=== PATIENT | male | born 1940 | race Hispanic/Latino ===

== ENCOUNTER 2019-03-08 12:04 | Emergency (ER) | payer MEDICARE ==
[2019-03-08] MEDS ORDERED: HYDROmorphone 1 MG/1 ML INJ IV ONE (12:28)
[2019-03-08] MEDS ORDERED: ONDANSETRON 4 MG/2 ML INJ IV ONE (12:28)
--- NOTE | 2019-03-08 12:31 | Event Note ---
ED Screening Note Date of service: 03/08/19 Time: 12:15 ED Screening Note: This initial assessment/diagnostic orders/clinical plan/treatment(s) is/are subject to change based on patients health status, clinical progression and re- assessment by fellow clinical providers in the ED. Further treatment and workup at subsequent clinical providers discretion. Patient/guardian urged not to elope from the ED as their condition may be serious if not clinically assessed and managed. Initial orders include: Left shoulder X-ray CT head
--- NOTE | 2019-03-08 12:33 | Emergency Department Report ---
HPI - HPI HPI: Room 19 The patient is a 79-year-old male presenting with a chief complaint of left shoulder pain after fall. The patient states today he tripped and fell forward for striking his left shoulder on the ground and striking his face small stature. Patient denies loss of consciousness but complains of severe pain to the left shoulder. Patient gets his pain a score of 10/10. The patient states he is up-to-date with his tetanus vaccinations Location: [See above] Duration: [See above] Quality: [See above] Severity: [See above] Timing: [See above] Context: [See above] Modifying factors: [See above] Associated signs and symptoms: [see above] <CAMELIA RIVERA - Last Filed: 03/08/19 15:05> <DEMI NAZARIO - Last Filed: 03/08/19 15:57> - General Chief Complaint: Fall Time Seen by Provider: 03/08/19 12:14 ED Past Medical Hx - Past Medical History Previous Medical History?: Yes Hx Hypertension: Yes Hx Diabetes: Yes Hx Arthritis: Yes - Surgical History Hx Coronary Stent: Yes (x 3) Additional Surgical History: Left knee replacement, - Family History Family history: no significant - Social History Smoking Status: Never Smoker Substance Use Type: None <CAMELIA RIVERA K - Last Filed: 03/08/19 15:05> <DEMI NAZARIO - Last Filed: 03/08/19 15:57> - Medications Home Medications: Home Medications Medication Instructions Recorded Confirmed Last Taken Type HYDROcodone/APAP 5-325 [[place] 1 - 2 each PO Q6HR PRN #20 tablet 03/08/19 Unknown Rx 5/325] Ibuprofen [Motrin 800 MG tab] 800 mg PO Q8HR PRN #20 tablet 03/08/19 Unknown Rx cephALEXin [Keflex] 500 mg PO Q12HR #14 cap 03/08/19 Unknown Rx ED Review of Systems ROS: Stated complaint: FALL INJURY/LT SHOULDER/HEAD INJURY Other details as noted in HPI Constitutional: no symptoms reported Eyes: denies: eye pain ENT: denies: throat pain Respiratory: no symptoms reported Cardiovascular: denies: chest pain Endocrine: no symptoms reported Gastrointestinal: denies: abdominal pain Genitourinary: denies: dysuria Musculoskeletal: arthralgia, myalgia Neurological: denies: headache <KIM RIVERAMOKE K - Last Filed: 03/08/19 15:05> ROS: Stated complaint: FALL INJURY/LT SHOULDER/HEAD INJURY Other details as noted in HPI Comment: All other systems reviewed and negative <DEMI NAZARIO A - Last Filed: 03/08/19 15:57> Physical Exam - Physical Exam Vital Signs: Vital Signs 03/08/19 12:12 Temperature 97.6 F Pulse Rate 70 Respiratory 16 Rate Blood Pressure 184/116 O2 Sat by Pulse 100 Oximetry Physical Exam: GENERAL: The patient is well-developed well-nourished male lying on stretcher appearing to be in mild discomfort. [] HEENT: Normocephalic. Irregularly-shaped laceration to the left face and left upper eyelid- Does not violate eyelid margin. Extraocular motions are intact. Patient has moist mucous membranes. NECK: Supple. No axial step offs CHEST/LUNGS: There is no respiratory distress noted. HEART/CARDIOVASCULAR: Regular. There is no tachycardia. There is no gallop rub or murmur. 2+ left radial pulse ABDOMEN: Abdomen is soft, nontender. Patient has normal bowel sounds. There is no abdominal distention. SKIN: There is no rash. There is no edema. There is no diaphoresis. NEURO: The patient is awake, alert, and oriented. The patient is cooperative. The patient has normal speech and gait. Normal sensation to light touch of the left hand patient able to make a fist with the left hand MUSCULOSKELETAL: There is pain in the left shoulder. There is no evidence of acute injury. <LOISAxelCAMELIA K - Last Filed: 03/08/19 15:05> - Physical Exam Vital Signs: Vital Signs 03/08/19 03/08/19 12:12 14:57 Temperature 97.6 F Temperature [ 99.1 F Pre-Procedure] Pulse Rate 70 Pulse Rate [Pre 77 -Procedure] Respiratory 16 Rate Respiratory 15 Rate [Pre- Procedure] Blood Pressure 184/116 Blood Pressure 182/79 [Pre-Procedure] O2 Sat by Pulse 100 Oximetry O2 Sat by Pulse 98 Oximetry [Pre- Procedure] <DEMI NAZARIO A - Last Filed: 03/08/19 15:57> ED Course Vital Signs 03/08/19 12:12 Temperature 97.6 F Pulse Rate 70 Respiratory 16 Rate Blood Pressure 184/116 O2 Sat by Pulse 100 Oximetry <CAMELIA RIVERA K - Last Filed: 03/08/19 15:05> Vital Signs 03/08/19 03/08/19 12:12 14:57 Temperature 97.6 F Temperature [ 99.1 F Pre-Procedure] Pulse Rate 70 Pulse Rate [Pre 77 -Procedure] Respiratory 16 Rate Respiratory 15 Rate [Pre- Procedure] Blood Pressure 184/116 Blood Pressure 182/79 [Pre-Procedure] O2 Sat by Pulse 100 Oximetry O2 Sat by Pulse 98 Oximetry [Pre- Procedure] <DEMI NAZARIO A - Last Filed: 03/08/19 15:57> - Moderate Sedation Indications: fracture/dislocation redu ASA Class: II Mallampati Airway Score: 3 Time of Last PO Intake: 23:00 Preparation: maintenance equipment operator applied, pulse oximeter, suction/airway equipment at bedside, IV secured IV Etomidate Dose (mgs): 12 Complications: none Patient Tolerated Procedure: well - Orthopedic Joint Reduction Joint #1 Consent Obtained: verbal consent Time Out Performed: Yes Side: left Joint Reduction Location: shoulder Analgesia: moderate sedation Amount of Anesthetic Used (mls): 12 (mg) Shoulder Technique Used (if applicable): traction/counter-traction Technique Used: traction/counter-traction Post-Reduction Neuro Exam: intact Post-Reduction Vascular Exam: intact Post Reduction X-Ray Obtained: Yes Post Reduction X-Ray Results: reduced Splint Applied: Yes Patient Tolerated Procedure: well <CAMELIA RIVERA K - Last Filed: 03/08/19 15:05> - Laceration /Wound Repair nose Wound Location: face Wound Length (cm): 3 Wound's Depth, Shape: irregular, flap, stellate, contused tissue Wound Explored: clean Irrigated w/ Saline (ccs): 50 Betadine Prep?: Yes Anesthesia: 1% Lidocaine Volume Anesthetic (ccs): 1 Wound Debrided: minimal Wound Repaired With: sutures Suture Size/Type: 3:0 Number of Sutures: 4 Layer Closure?: No Sterile Dressing Applied?: Yes <DEMI NAZARIO A - Last Filed: 03/08/19 15:57> ED Medical Decision Making - Radiology Data Radiology results: report reviewed (CT head, CT cervical spine, CT facial bones, left shoulder x-ray), image reviewed (left shoulder x-ray, CT head, CT cervical spine, CT facial bones) interpreted by me: Shoulder [id number] dislocation left shoulder [address] [address] XRay Report Signed Patient: WILL WORRELL MR#: [id number] 3 : 1940 Acct:[id number] Age/Sex: 79 / M ADM Date: 03/08/19 Loc: ED Attending Dr: Order ing Physician: FABIOLA VEE Date of Service: 03/08/19 Procedure(s): XR shoulder 2+V LT Accession Number(s): [id number] cc: FABIOLA VEE Fluoro Time In Minutes: The left shoulder 3 views INDICATION: Left shoulder pain following fall IMPRESSION: There is evidence of fracture dislocation of the left glenohumeral joint with anterior inferior subluxation of the shoulder. There ap pears to be a displaced osseous fragment lateral to the glenoid. Signer Name: Jenaro Ruiz MD Signed: 03/08/2019 1:00 PM Workstation Name: [id number] Transcribed By: BC Dictated By: Jenaro Ruiz MD Electronically Authenticated By: Jenaro Ruiz MD Signed Date/Time: 03/08/19 1300 DD/ 1259 TD/TT: [address] [address] Cat Scan Report Signed Patient: WILL WORRELL MR#: [id number] 3 : 1940 Acct:[id number] Age/Sex: 79 / M ADM Date: 03/08/19 Loc: ED Attending Dr: Ordering Physician: CAMELIA RIVERA MD Date of Service: 03/08/19 Procedure(s): CT facial bones wo con Accession Number(s): [id number] cc: CAMELIA RIVERA MD CT head without contrast CT facial bones without contrast HISTORY: head injury after fall. TECHNIQUE: Axial imaging performed from the skull apex through the skull base without the use of contrast. All CT scans at this location are performed using CT dose reduction for ALARA by means of automated exposure control. COMPARISON: None FINDINGS: Parenchyma: No acute intracranial hemorrhage or parenchymal abnormality. Ventricles: There is mild diffuse brain atrophy with commensurate ventricular enlargement which is likely age appropriate. Bones and soft tissues: There are comminuted nasal bone fractures bilaterally with overlying soft tissue swelling. No other fracture or soft tissue abnormality identified. Orbits are normal. Sinuses: Sinuses and mastoid air cells are clear. IMPRESSION: 1. Comminuted nasal bone fractures, with mild overlying soft tissue swelling. 2. No acute intracranial abnormality. Signer Name: Austin Mata MD Signed: 03/08/2019 1:10 PM Workstation Name: [id number] Transcribed By: JW Dictated By: Austin Mata MD Electronically Authenticated By: Austin Mata MD Signed Date/Time: 03/08/19 1310 DD/ 1306 TD/TT: [facility] [address] [place] [address] Cat Scan Report Signed Patient: WILL WORRELL MR#: [id number] 3 : 1940 Acct:[id number] Age/Sex: 79 / M ADM Date: 03/08/19 Loc: ED Attending Dr: Ordering Physician: CAMELIA RIVERA MD Date of Service: 03/08/19 Procedure(s): CT cervical spine wo con Accession Number(s): [id number] cc: CAMELIA RIVERA MD Exam: CT cervical spine History: head injury after fall; Technique: Contiguous thin cut axial images obtained through the cervical spine. Sagittal and coronal reconstructions performed by the technologist. All CT scans at this location are performed using CT dose reduction for ALARA by means of automated exposure control. Findings: No priors. There is no evidence of fracture or traumatic subluxation. Vertebral bodies are normal in height and alignment. Vertebral compression fractures; normal prevertebral space; no fracture involving the bony canal in the transverse images Disc heights are relatively well preserved. At C3-C4 disc level, left neural foramen is narrowed due to facet joint hypertrophic changes. At C4-C5 disc level, marked facet joint hypertrophic changes are seen bilaterally. At C5-C6 disc level, minimal spondylolisthesis seen. Moderate facet joint hypertrophic changes are seen bilaterally more on the left side. Shallow disc protrusion is seen towards the left side. Left neural foramen is narrowed. C6-C7 and C7-T1 disc spaces are normal. Facet joints are an kylosed at C2-C3, C3-C4 and C4-C5 disc levels bilaterally. Calcification is seen in the left carotid bifurcation. Impression: No signs of acute bony trauma to the cervical spine. Signer Name: Venu Norman MD Signed: 03/08/2019 1:40 PM Workstation Name: [id number] Transcribed By: BISHOP Dictated By: Venu Figueroa MD Electronically Authenticated By: Venu Figueroa MD Signed Date/Time: 03/08/19 1340 DD/ 1335 TD/TT: [facility] [address] [place] [address] Cat Scan Report Signed Patient: WILL WORRELL MR#: [id number] 3 : 1940 Acct:[id number] Age/Sex: 79 / M ADM Date: 03/08/19 Loc: ED Attending Dr: Ordering Physician: FABIOLA VEE Date of Service: 03/08/19 Procedu re(s): CT head/brain wo con Accession Number(s): [id number] cc: FABIOLA VEE CT head without contrast CT facial bones without contrast HISTORY: head injury after fall. TECHNIQUE: Axial imaging performed from the skull apex through the skull base without the use of contrast. All CT scans at this location are performed using CT dose reduction for ALARA by means of automated exposure control. COMPARISON: None FINDINGS: Parenchyma: No acute intracranial hemorrhage or parenchymal abnormality. Ventricles: There is mild diffuse brain atrophy with commensurate ventricular enlargement which is likely age appropriate. Bones and soft tissues: There are comminuted nasal bone fractures bilaterally with overlying soft tissue swelling. No other fracture or soft tissue abnormality identified. Orbits are normal. Sinuses: Sinuses and mastoid air cells are clear. IMPRESSION: 1. Comminuted nasal bone fractures, with mild overlying soft tissue swelling. 2. No acute intracranial abnormality. Signer Name: Austin Mata MD Signed: 03/08/2019 1:10 PM Workstation Name: [id number] Transcribed By: JW Dictated By: Austin Mata MD Electronically Authenticated By: Austin Mata MD Signed Date/Time: 03/08/19 1310 DD/ 1306 TD/TT: - Differential Diagnosis wrist fracture, facial laceration, closed head injury, ICH, <CAMELIA RIVERA - Last Filed: 03/08/19 15:05> - Medical Decision Making Vital Signs 03/08/19 03/08/19 03/08/19 12:12 14:57 15:45 Temperature 97.6 F 98.2 F Temperature [ 99.1 F Pre-Procedure] Pulse Rate 70 73 Pulse Rate [Pre 77 -Procedure] Respiratory 16 15 Rate Respiratory 15 Rate [Pre- Procedure] Blood Pressure 184/116 Blood Pressure 182/79 [Pre-Procedure] Blood Pressure 181/75 [Right] O2 Sat by Pulse 100 100 Oximetry O2 Sat by Pulse 98 Oximetry [Pre- Procedure] xrays noted shoulder reduced lac repaired pt and family educated on post dc wound care I've asked them to return here in am for follow up with me given the proximity to the eye. verbalizes understanding <DEMI NAZARIO A - Last Filed: 03/08/19 15:57> Critical care attestation.: If time is entered above; I have spent that time in minutes in the direct care of this critically ill patient, excluding procedure time. <CAMELIA RIVERA - Last Filed: 03/08/19 15:05> Critical care attestation.: If time is entered above; I have spent that time in minutes in the direct care of this critically ill patient, excluding procedure time. <DEMI NAZARIO A - Last Filed: 03/08/19 15:57> ED Disposition Is pt being admited?: No Does the pt Need Aspirin: No <CAMELIA RIVERA - Last Filed: 03/08/19 15:05> Is pt being admited?: No Does the pt Need Aspirin: No Time of Disposition: 15:57 <DEMI NAZARIO A - Last Filed: 03/08/19 15:57> Clinical Impression: Facial laceration, Fracture dislocation of left shoulder joint Disposition: DC-01 TO HOME OR SELFCARE Condition: Stable Instructions: Suture Care (ED), Shoulder Dislocation (ED), Laceration (ED) Additional Instructions: Return to the emergency department should you develop worsening symptoms, inability to tolerate food or liquids, high fever or any other concerns ICE SLEEP SITTING UP ARM SLING EYE PATCH TO STAY THIS EVENING MOTRIN OR TYLENOL FOR PAIN AVOID NARCOTICS IF POSSIBLE MEDS ORDERED FOLLOW UP WITH DR HALE MONITOR [employer]AR Prescriptions: cephALEXin [Keflex] 500 mg PO Q12HR #14 cap Ibuprofen [Motrin 800 MG tab] 800 mg PO Q8HR PRN #20 tablet PRN Reason: Pain, Moderate (4-6) HYDROcodone/APAP 5-325 [[place] 5/325] 1 - 2 each PO Q6HR PRN #20 tablet PRN Reason: Pain Referrals: KINGS HALE MD [Staff Physician] - [facility] (Dr. Hale is an orthopedic surgeon. Please follow-up with him for further evaluation)
[2019-03-08] MEDS ORDERED: SODIUM CHLORIDE IRRI 500 ML 500 ML IR ONE (12:43)
--- NOTE | 2019-03-08 13:04 | XRay Report ---
The left shoulder 3 views INDICATION: Left shoulder pain following fall IMPRESSION: There is evidence of fracture dislocation of the left glenohumeral joint with anterior in ferior subluxation of the shoulder. There appears to be a displaced osseous fragment lateral to the g lenoid. Signer Name: Jenaro Ruiz MD Signed: 03/08/2019 1:00 PM Workstation Name: [id number]
--- NOTE | 2019-03-08 13:14 | Cat Scan Report ---
CT head without contrast CT facial bones without contrast HISTORY: head injury after fall. TECHNIQUE: Axial imaging performed from the skull apex through the skull base without the use of con trast. All CT scans at this location are performed using CT dose reduction for ALARA by means of aut omated exposure control. COMPARISON: None FINDINGS: Parenchyma: No acute intracranial hemorrhage or parenchymal abnormality. Ventricles: There is mild diffuse brain atrophy with commensurate ventricular enlargement which is l ikely age appropriate. Bones and soft tissues: There are comminuted nasal bone fractures bilaterally with overlying soft ti ssue swelling. No other fracture or soft tissue abnormality identified. Orbits are normal. Sinuses: Sinuses and mastoid air cells are clear. IMPRESSION: 1. Comminuted nasal bone fractures, with mild overlying soft tissue swelling. 2. No acute intracranial abnormality. Signer Name: Austin Mata MD Signed: 03/08/2019 1:10 PM Workstation Name: [id number]
--- NOTE | 2019-03-08 13:45 | Cat Scan Report ---
Exam: CT cervical spine History: head injury after fall; Technique: Contiguous thin cut axial images obtained through the cervical spine. Sagittal and gale l reconstructions performed by the technologist. All CT scans at this location are performed using CT dose reduction for ALARA by means of automated exposure control. Findings: No priors. There is no evidence of fracture or traumatic subluxation. Vertebral bodies are normal in height and alignment. Vertebral compression fractures; normal preverte bral space; no fracture involving the bony canal in the transverse images Disc heights are relatively well preserved. At C3-C4 disc level, left neural foramen is narrowed due to facet joint hypertrophic changes. At C4-C5 disc level, marked facet joint hypertrophic changes are seen bilaterally. At C5-C6 disc level, minimal spondylolisthesis seen. Moderate facet joint hypertrophic changes are se en bilaterally more on the left side. Shallow disc protrusion is seen towards the left side. Left urban ral foramen is narrowed. C6-C7 and C7-T1 disc spaces are normal. Facet joints are ankylosed at C2-C3, C3-C4 and C4-C5 disc levels bilaterally. Calcification is seen in the left carotid bifurcation. Impression: No signs of acute bony trauma to the cervical spine. Signer Name: Venu Norman MD Signed: 03/08/2019 1:40 PM Workstation Name: [email or web address]
[2019-03-08] MEDS ORDERED: ETOMIDATE 20 MG/10 ML INJ IV ONE ×2 (14:57→15:15)
[2019-03-08 15:55] VITALS: BP 181/75
--- NOTE | 2019-03-08 16:27 | XRay Report ---
Single frontal view of the left shoulder INDICATION: post reduction. COMPARISON: Earlier today IMPRESSION: Interval relocation with Hill-Sachs fracture again noted. There is a small sheared frag ment laterally. Signer Name: Austin Mata MD Signed: 03/08/2019 4:23 PM Workstation Name: [id number]
== END 2019-03-08 16:48 | disposition home or self-care (01) ==
LOC: ED 12:04
DX: S01.21XA Laceration without foreign body of nose, initial encounter (principal); S42.92XA Fracture of left shoulder girdle, part unspecified, initial encounter for closed fracture; I10 Essential (primary) hypertension; E11.9 Type 2 diabetes mellitus without complications; M19.90 Unspecified osteoarthritis, unspecified site; Z98.890 Other specified postprocedural states; Z79.1 Long term (current) use of non-steroidal anti-inflammatories (NSAID); Z79.899 Other long term (current) drug therapy; W19.XXXA Unspecified fall, initial encounter; Y93.89 Activity, other specified; Y92.89 Other specified places as the place of occurrence of the external cause; Y99.8 Other external cause status
CPT/HCPCS: 12013; 24505; 70450; 70486; 72125; 73020; 73030; 96374; 96375; 99284; J1170; J2405

== ENCOUNTER 2019-03-09 12:21 | Emergency (ER) | payer MEDICARE ==
--- NOTE | 2019-03-09 12:24 | Emergency Department Report ---
Stated Complaint: FOLLOW UP FOR EYELID Time Seen by Provider: 03/09/19 12:23 - HPI History of Present Illness: HERE YESTERDAY SP HAD SHOULDER REDUCTION AND LAC TO NASAL BRIDGE AND EYE REPAIRED - ROS Review of Systems: NO NEW COMPLAINTS - Exam Physical Exam: MILD BRUISING UNDER LEFT EYE SUTURE INTACT NO DRAINAGE OF EYE CANTHUS INTACT MSE screening note: Focused history and physical exam performed. Due to findings the following was ordered: NO ACUTE LIFE THREAT DC HOME WILL FOLLOW UP NEXT TO HAVE SUTURES REMOVED FAMILY AND PT UNDERSTAND PLAN OF CARE. HE IS TAKING ANTIBIOTIC AND WILL FOLLOW UP WITH DR TOPETE Patient discussed with doctor:: CAMELIA RIVERA ED Disposition for MSE Condition: Stable
[2019-03-09 12:33] VITALS: BP 146/71
== END 2019-03-09 12:24 | disposition left against medical advice (07) ==
LOC: ED 12:21
DX: Z01.00 Encounter for examination of eyes and vision without abnormal findings (principal); Z53.21 Procedure and treatment not carried out due to patient leaving prior to being seen by health care provider

== ENCOUNTER 2019-03-17 14:40 | Emergency (ER) | payer MEDICARE ==
[2019-03-17 16:09] VITALS: BP 145/63
--- NOTE | 2019-03-17 16:15 | Emergency Department Report ---
Suture/Staple Removal - HPI Chief Complaint: Laceration/Recheck/Suture Stated Complaint: SUTURE REMOVAL Time Seen by Provider: 03/17/19 16:15 When Sutures or Krysta Placed: 03/08/19 Wound Location: left nasal region and left upper eyelid ED Review of Systems ROS: Stated complaint: SUTURE REMOVAL Other details as noted in HPI Comment: All other systems reviewed and negative ED Past Medical Hx - Past Medical History Hx Hypertension: Yes Hx Diabetes: Yes Hx Arthritis: Yes - Surgical History Hx Coronary Stent: Yes (x 3) Additional Surgical History: Left knee replacement, - Social History Smoking Status: Former Smoker Substance Use Type: Alcohol - Medications Home Medications: Home Medications Medication Instructions Recorded Confirmed Last Taken Type HYDROcodone/APAP 5-325 [[place] 1 - 2 each PO Q6HR PRN #20 tablet 03/08/19 Unknown Rx 5/325] Ibuprofen [Motrin 800 MG tab] 800 mg PO Q8HR PRN #20 tablet 03/08/19 Unknown Rx cephALEXin [Keflex] 500 mg PO Q12HR #14 cap 03/08/19 Unknown Rx Suture Removal Exam - Exam General: Vital signs noted. No distress. Alert and acting appropriately. Wound: No Pathologic Erythema, No Tenderness, No Drainage, No Pus, No Wound Dehiscence Other Systems: All other systems reviewed and are unremarkable. ED Course Vital Signs 03/17/19 16:08 Temperature 98.9 F Pulse Rate 57 L Respiratory 16 Rate Blood Pressure 145/63 O2 Sat by Pulse 96 Oximetry ED Recheck MDM - Medical Decision Making Patient presents for suture removal. He denies any pain, drainage, fever, chills, vomiting, any other symptoms. Patient states that his tetanus shot was up-to-date. 4 sutures were placed. All sutures removed by nurse. Patient tolerated well. No bleeding. No wound dehiscence. healed wound is clean, dry, intact. Critical care attestation.: If time is entered above; I have spent that time in minutes in the direct care of this critically ill patient, excluding procedure time. ED Disposition Clinical Impression: Visit for suture removal Disposition: DC-01 TO HOME OR SELFCARE Is pt being admited?: No Does the pt Need Aspirin: No Condition: Stable Instructions: Suture Removal (ED) Additional Instructions: please continue to keep area clean, dry, covered. follow up with a primary care doctor in the next 2-3 days. return to the emergency room for any new or worsening symptoms. Referrals: your, primary care doctor [Other] - 2-3 Days Time of Disposition: 16:22 Print Language: UZBEK
== END 2019-03-17 16:37 | disposition home or self-care (01) ==
LOC: ED 14:40
DX: Z48.01 Encounter for change or removal of surgical wound dressing (principal); I10 Essential (primary) hypertension; E11.9 Type 2 diabetes mellitus without complications; M19.90 Unspecified osteoarthritis, unspecified site; Z98.890 Other specified postprocedural states; Z87.891 Personal history of nicotine dependence; Z79.1 Long term (current) use of non-steroidal anti-inflammatories (NSAID); Z79.899 Other long term (current) drug therapy